=== PATIENT | female | born 1995 | race Hispanic/Latino ===

== ENCOUNTER 2019-04-08 12:03 | Emergency (ER) | payer OTHER, SELFPAY ==
--- NOTE | 2019-04-08 14:46 | ULT ---
Exam: Transabdominal and endovaginal pelvic ultrasound HISTORY:Left pelvic pain COMPARISON: None TECHNIQUE: Transabdominal and endovaginal imaging of the pelvis is performed. Ovaries are interrogate d with grayscale, color flow, Doppler imaging and spectral wave form analysis FINDINGS: Uterus: No myometrial masses. Uterus measurin.9 x 3.3 x 4.7 cm. Endometrium: Homogeneous echotexture Endometrium diameter: 1.1 cm. . Free fluid: Small amount of free fluid in the cul-de-sac Left ovary: Normal echotexture. Follicles are noted. Left ovary measurements: 2.0 x 3.4 x 2.4 cm cm Right ovary: Normal echotexture. Follicles are noted. Right ovary measurement: 3.1 x 3.8 x 3.0 cm Ovarian Doppler: There is vascular flow to the left and right ovary. IMPRESSION: Unremarkable pelvic ultrasound.
== END 2019-04-08 15:05 | disposition home or self-care (01) ==
LOC: ERS 12:03
DX: R10.32 Left lower quadrant pain (principal)
CPT/HCPCS: 76856; 93976